=== PATIENT | male | born 1975 | race Hispanic/Latino ===

== ENCOUNTER 2019-01-17 10:50 | Observation (INO) ==
[~2019-01-17 10:50] MED LIST: BUPivacaine 0.5%/Epi Inj 50 ML VIAL ONE; BUPivacaine Liposome/PF (Exparel) Inj 20ml vial INFIL ONE; LIDOCAINE W/ SODIUM BICARB 0.5 ML SYR SUBD ONE; Nasal Sanitizer POPSWAB ampule 3 AMP (Nozin) PREOP DOSE ENOS SCH; ceFAZolin Inj 2gm (Premix) 2 GM/50 ML BAG IV ONE
[2019-01-17] MEDS ORDERED: LIDOCAINE W/ SODIUM BICARB 0.5 ML SYR ONE (11:16)
[2019-01-17] MEDS ORDERED: Lactated Ringers 1,000 ML PRIMARY IV ONE ×2 (11:16→15:22)
[2019-01-17] MEDS: Lactated Ringers 1,000 ML PRIMARY IV SCH ×2 (11:20→20:13)
[2019-01-17] MEDS ORDERED: ceFAZolin Inj 2gm (Premix) 2 GM/50 ML BAG IV ONE (12:20)
[2019-01-17] MEDS ORDERED: Ropivacaine 0.2% VIAL 20 ML ONE (12:28)
[2019-01-17] MEDS ORDERED: BUPIVACAINE 0.25% W/ EPI - 10 ML VIAL ONE (12:28)
[2019-01-17] MEDS ORDERED: EPINEPHrine Inj (1:1,000) 30mg/30ml vial ONE (12:47)
[2019-01-17] MEDS ORDERED: fentaNYL Inj 100 MCG/2 ML VIAL ONE ×2 (13:13→14:25)
[2019-01-17] MEDS ORDERED: PROPOFOL 10 MG/1 ML (200 MG/20 ML) VIAL IV ONE (13:34)
[2019-01-17] MEDS ORDERED: DEXAMETHASONE PF 10 MG/1 ML VIAL ONE (14:26)
[2019-01-17] MEDS ORDERED: ONDANSETRON 4 MG/2 ML VIAL ONE (14:27)
[2019-01-17] MEDS ORDERED: HYDROmorphone 2 MG/1 ML ONE (15:14)
[2019-01-17] MEDS ORDERED: ONDANSETRON 4 MG/2 ML VIAL IVP PRN (15:52)
[2019-01-17] MEDS ORDERED: oxyCODONE-ACETAMINOPHEN 5-325 TAB PO PRN (15:52)
--- NOTE | 2019-01-17 15:59 | ORTHO.OP ---
Surgery Date: 01/17/19 Preoperative Diagnosis: Right shoulder biceps tendonitis, AC DJD, impingement, prior rotator cuff repair Postoperative Diagnosis: Right shoulder partial thickness rotator cuff tear, biceps tendonitis, impingement, AC DJD Procedure: 1. Right shoulder rotator cuff repair. 2. Right shoulder arthroscopic debridement. 3. Right shoulder subacromial decompression. 4. Right shoulder Open AC Joint Resection. 5. Right shoulder Open Subpectoral Biceps Tenodesis Surgeon: Mk Retana MD Car Painter: ROBB Horowitz Anesthesia Provider: Pee Bennett MD Anesthesia Type: General, Regional Estimated Blood Loss (mL): 50 Fluids: 1500 Indications: See Operative Note (Right shoulder focal partial thickness supraspinatous tendon tear. Infraspinatous and subscapularis intact. Biceps anterior subluxation and biceps tendonitis. Subacromial impingement with type 2 acromion, AC joint DJD)
--- NOTE | 2019-01-17 16:32 | CRNA.PROGR ---
Addendum entered and electronically signed by Pee Bennett 01/18/19 06:52: patient to recovery, pain well controlled. Report relayed to DR Bennett, physician on record for anesthesia plan delivery Original Note: Anesthesia Time - Procedure/Recovery Time Start Date: 01/17/19 End Date: 01/17/19 Anesthesia : Time In: 13:04 Anesthesia : Time Out: 16:19 Anesthesia : Total Time: 195 - Total Anesthesia Time Total Anesthesia Time (minutes): 195 - Other Weight: 96.162 kg Height: 5 ft 8 in Body Mass Index (BMI): 32.2 Physical Status: P2 Anesthesia Type: General Anesthesia : LMA
--- NOTE | 2019-01-17 16:33 | CRNA.PROGR ---
Anesthesia Recovery Phase I - Post Anesthesia Evaluation Patient's Condition on Arrival in Phase I: Stable Patient's Condition on Arrival in Phase II: Stable Pain Level: 0 (Slow emergence with Sevoflurane inhaled agent)
[2019-01-17] MEDS ORDERED: LIDOCAINE W/ SODIUM BICARB 0.5 ML SYR SUBD PRN (16:55)
[2019-01-17] MEDS ORDERED: HYDROmorphone 2 MG/1 ML IVP PRN (16:55)
[2019-01-17] MEDS ORDERED: Ondansetron ODT Tab 8 MG TAB PO PRN (16:55)
[2019-01-17] MEDS ORDERED: ATROPINE SULFATE 0.4 MG/1 ML VIAL IVP PRN (16:55)
[2019-01-17] MEDS ORDERED: Prochlorperazine Edisylate Inj 10mg/2ml vial IVP PRN (16:55)
[2019-01-17] MEDS ORDERED: Lactated Ringers 1,000 ML PRIMARY IV SCH (17:00)
[2019-01-17] MEDS ORDERED: Ondansetron ODT Tab 8 MG TAB PO ONE (17:56)
[2019-01-17] MEDS: KETOROLAC 15 MG/1 ML VIAL IVP PRN (22:51)
[2019-01-18] MEDS: Lactated Ringers 1,000 ML PRIMARY IV SCH ×2 (03:13)
[2019-01-18 07:52] VITALS: BP 118/80; RESP 16; TEMP 97.4
[2019-01-18] MEDS: KETOROLAC 15 MG/1 ML VIAL IVP PRN (08:07)
--- NOTE | 2019-01-18 11:10 | ORTHO.PROG ---
Last Taken Vital Signs: Vital Signs - Last Taken Temperature 97.4 F 01/18/19 07:47 Pulse Rate 89 01/18/19 07:47 Respiratory Rate 16 01/18/19 07:47 Blood Pressure 118/80 01/18/19 07:47 Pulse Ox 91 01/18/19 09:00 Subjective: Mr. Staton is a 43 y/o RHD male POD#1, s/p right shoulder WON, RC repair with biologic patch graft, open biceps tenodesis, open distal clavicle excision with Dr. Mk Retana on 01/17/19. Admitted to 23 hr observation due to dizziness and intermittent O2 desaturation into the 80's. He's doing well this morning. No longer dizzy. Nursing does note sats still occasionally dropping to upper 80's but resolves quickly with IS. No shortness of breath or chest pain, no cough, sputum, wheezing, orthopnea, pedal edema. No pain in the right shoulder; still numb in the arm from his block. Eating and drinking well. Ready to go home. Objective: Well developed, well nourished. NAD. VSS A&O x 3 Resp: no audible wheezing or labored breathing Neck: with full ROM without pain. Right shoulder: dressing clean and dry. Sling in place. Sensation decreased to light touch hand dorsally. Patient unable to actively lift the right arm; did not assess passive ROM. Radial pulse and cap refill intact. Extrem: no edema Assessment: 43 y/o male s/p Right WON, ARCR with biologic graft, open biceps tenodesis, open distal clavicle excision 01/17/[address] Mk Retana. Doing well; dizziness resolved. Plan: Discharge to home. Okay for Bath, but no shower or submerging shoulder until further notice. Keep dressing clean and dry. Ice to shoulder. Wear sling. No resisted elbow flexion. Continue IS at home every hour. Followup with Maddy Laguna in the office on January, at 1230 in the afternoon for dressing change then Dr. Retana in [place] at [facility] on 01/30/19 at 10:45a.m. Take meds as prescribed and as discussed - sent to [place]. Start PT on Wednesday here in [place]; biceps and subacromial decompression protocols. Call [facility] or the office for any needs, questions or concerns. [facility]: [phone], [facility] Ortho: [phone] MED Surg [facility] [phone]
[2019-01-18 11:38] VITALS: O2SAT 92
--- NOTE | 2019-01-19 09:51 | OT AM DAY ---
Diagnosis : Right Biceps Tenodesis with Graft on Supraspinatus AM - Occupational Therapy S: The patient reports he is not in a lot of pain. O: The therapist changed the dressing with sterile 4X4s and foam tape. The patient was instructed in shoulder do's and don'ts and precautions including no lifting. The patient was able to dress self with max assist. His was present during the session today. The patient was issued a cryocuff for the right shoulder and instructed in its proper use and care. P: No further therapy is indicated at this time. The patient is to start outpatient therapy on Wednesday. SAMIRA
== END 2019-01-18 11:55 | disposition home or self-care (01) ==
LOC: OR 10:50 → MED/SURG 10:50 → OPS 10:51
PROVIDERS: ADMIT Orthopaedic Surgery Sports Medicine; ATTEND Orthopaedic Surgery Sports Medicine